=== PATIENT | female | born 1955 | race Caucasian/White ===

== ENCOUNTER 2020-12-05 10:40 | Emergency (ER) | payer OTHER, BC ==
[2020-12-05 11:00] VITALS: BP 141/84; PULSE 70; TEMP 98; BMI 21.2
[2020-12-05] MEDS ORDERED: ACETAMINOPHEN 325 MG TABLET (FP) PO ONE (11:31)
[2020-12-05] MEDS ORDERED: ACETAMINOPHEN 325 MG TABLET (FP) ONE (11:40)
== END 2020-12-05 13:35 | disposition home or self-care (01) ==
LOC: JER 10:40
DX: R51.9 Headache, unspecified (principal); M54.2 Cervicalgia; M25.561 Pain in right knee
CPT/HCPCS: 70450-TC; 70486-TC; 72125-TC; 99285-25